=== PATIENT | female | born 1940 | race Caucasian/White ===

== ENCOUNTER 2019-08-09 13:06 | Outpatient (CLI) | payer MEDICARE, OTHER ==
[2019-08-09] MEDS ORDERED: Iopamidol-370 76% 500 ML 1 ML ONE (13:35)
--- NOTE | 2019-08-09 15:36 | CT ---
EXAM: CT Abdomen Pelvis W WO con PROVIDED CLINICAL HISTORY: Hematuria and renal stones. COMPARISON: None FINDINGS: Partial visualization of postsurgical changes related to aortic valve replacement. Mild linear scarri ng and/or atelectasis is present at each lung base. Vascular calcifications are seen in the abdominal aorta and involving the iliac arteries. Single nonobstructing calculus is seen in each kidney. Calculus in the midportion right kidney measur es 7 mm x 5 mm with the calculus in the inferior pole left kidney measuring 11 mm x 6 mm. No ureteral calculus is seen bilaterally. There is no hydronephrosis. No enhancing renal mass is identif ied. Urinary bladder is partially distended and has a normal CT appearance. No ureteral calculus is visualized. A 11 mm hypodense cystic appearing lesion is seen in the pancreatic head which is closely adjacent to the nondilated common duct. There is also suggestion of an additional subcentimeter hypodense cystic appearing lesion in the proximal body of the pancreas. The liver, spleen, and bilateral adrena l glands demonstrate a normal CT appearance. Vascular calcifications are seen in the abdominal aorta and involving the iliac arteries. Uterus is not visualized likely due to prior hysterectomy. Loops of small bowel are normal in caliber. Small hiatal hernia is seen. The appendix is not visualiz ed, there are no secondary signs to suggest appendicitis. Degenerative changes are seen in the lumbar spine. IMPRESSION: 1. Cystic pancreatic lesions largest measuring 11 mm in the pancreatic head. Follow-up CT examination in one year is recommended given size. 2. Nonobstructing bilateral renal calculi. No ureteral calculus is seen. 3. Small hiatal hernia. 4. Hysterectomy.
== END 2019-08-09 13:07 | disposition home or self-care (01) ==
LOC: BICCT 13:06
PROVIDERS: ATTEND Urology
DX: N20.0 Calculus of kidney (principal); R31.9 Hematuria, unspecified; K44.9 Diaphragmatic hernia without obstruction or gangrene; K86.2 Cyst of pancreas; Z90.710 Acquired absence of both cervix and uterus
CPT/HCPCS: 36415; 74178; 80048; 81001; 83036; Q9967

== ENCOUNTER 2019-09-21 09:35 | Outpatient (CLI) | payer MEDICARE, OTHER ==
--- NOTE | 2019-09-21 11:51 | MRI ---
MRI ABDOMEN WITH AND WITHOUT IV CONTRAST: Date: 09/21/2019 INDICATION: History of cystic lesion of the pancreas. COMPARISON: CT abdomen and pelvis with and without contrast dated 08/09/2019. CONTRAST: 16 mL MultiHance. FINDINGS: As seen on the comparison CT evaluation is a 7.0 mm x 11.0 mm unilocular cystic abnormality seen with in the pancreatic head adjacent to the distal common bile duct with no definite communication with th e bile duct or main pancreatic duct. No additional cystic abnormality is evident. The common bile dee t and main pancreatic duct are normal in caliber. No focal hepatic lesion is evident. The spleen and adrenal glands are normal appearing. The kidneys are normal appearing. No free fluid or enlarged lymp h nodes are evident. No bone marrow signal abnormality is demonstrated. Visualized gallbladder is nor mal appearing. No intrahepatic biliary ductal dilatation is noted. IMPRESSION: 1. Small, predominantly unilocular, thin-walled, cystic abnormality within the pancreatic head, is s uspicious for either a small serous cyst versus cystadenoma. No direct communication is seen with the adjacent main pancreatic duct, nor within the common bile duct. Other differential considerations in clude a small choledochal cyst and less likely a small mucinous type cyst. A follow-up MRI examinatio n in 1 year is recommended to document stability. 2. Small hiatal hernia. POS: CET
[2019-09-21] MEDS ORDERED: Magnevist 469MG/ML 20 ML VIAL ONE (14:29)
== END 2019-09-21 09:36 | disposition home or self-care (01) ==
LOC: BICMRI 09:35
PROVIDERS: ATTEND Internal Medicine Gastroenterology
DX: K86.2 Cyst of pancreas (principal); K21.9 Gastro-esophageal reflux disease without esophagitis; K44.9 Diaphragmatic hernia without obstruction or gangrene; R93.3 Abnormal findings on diagnostic imaging of other parts of digestive tract
CPT/HCPCS: 74183; 82565; A9579

== ENCOUNTER 2019-10-04 09:04 | Outpatient (CLI) | payer MEDICARE, OTHER ==
--- NOTE | 2019-10-04 10:40 | RAD ---
Exam: 1 view abdomen Comparison 07/12/2019 FINDINGS: Nonspecific bowel gas pattern. No evidence of small bowel or colonic distention/dilatation. Scattered fecal material in colon. Stable 1 cm calcification projecting over the left renal silhouette. There does appear to be a stable 0.6 cm calcification projecting over the right renal silhouette. Stable calcification the right hemipelvis, likely representing a phlebolith No acute osseous abnormalities. There are degenerative changes in the symphysis pubis IMPRESSION: Bilateral renal calculi.
== END 2019-10-04 09:05 | disposition home or self-care (01) ==
LOC: RAD 09:04
PROVIDERS: ATTEND Urology
DX: N20.0 Calculus of kidney (principal)
CPT/HCPCS: 74018

== ENCOUNTER 2020-02-22 06:06 | Outpatient (CLI) | payer MEDICARE, OTHER ==
[2020-02-22 14:27] LABS: Prothrombin Time 22.7 sec (12.0-14.7)
[2020-02-22 14:28] LABS: #Eosinphils 0.1 thou/uL (0.0-0.7); #Lymphocytes 1.6 thou/uL (1.20-3.40); #Monocytes 0.6 thou/uL (0.11-0.59); #Neutrophils 6.6 thou/uL (1.40-6.50); %Basophils 0.4 % (0.0-1.0); %Eosinophils 1.3 % (0.0-10.0); %Lymphocytes 17.8 % (21.0-51.0); %Monocytes 7.1 % (0.0-10.0); %Neutrophils 73.5 % (42.0-75.0); Mean Corpuscular HGB CONC 33.9 g/dL (32.0-36.0); Mean Corpuscular Hemoglobin 31.6 pg (27.0-31.0); Mean Corpuscular Volume 93.2 fL (78.0-98.0); PTT 41.2 sec (22.9-36.1); Platelet Count 168 thou/uL (130-400); RBC Distribution Width 11.6 % (11.5-14.5); Red Blood Cell (RBC) Count 4.44 mill/uL (4.20-5.40); White Blood Cell (WBC) Count 8.9 thou/uL (4.8-10.8)
[2020-02-22 14:44] LABS: Anion Gap 14 mmol/L (10-20); BUN (Urea Nitrogen) 24 mg/dL (9.8-20.1); Calc. Creatinine Clearance 0 mL/min (70-130); Calcium 9.1 mg/dL (7.8-10.44); Carbon Dioxide 22 mmol/L (23-31); Chloride 105 mmol/L (98-107); Estimated GFR-MDRD 70; Glucose 115 mg/dL (83-110); Potassium 4.3 mmol/L (3.5-5.1); Sodium 137 mmol/L (136-145)
[2020-02-22 15:23] LABS: Bacteria/HPF None Seen HPF (None Seen); Bilirubin Negative (Negative); Blood, Urine 2+ (Negative); Clarity Clear (Clear); Glucose, Urine (Dipstick) Normal (Negative); Ketone, Urine Negative (Negative); Leukocyte Negative Leu/uL (Negative); Nitrite Negative (Negative); Protein, Urine (Dipstick) Negative (Neg-Trace); Squamous Epithelial 0-3 HPF (0-3); Urobilinogen Normal mg/dL (Less than 2); WBC/HPF 0-3 HPF (0-3)
[2020-02-23 13:54] LABS: SARS-CoV-2 MS2 Positive; SARS-CoV-2 N Gene Negative; SARS-CoV-2 S Gene Negative; SARS-CoV-2 by NAA Not Detected (NotDetected); SARS-CoV-2 orf1ab Negative
== END 2020-02-22 06:07 | disposition home or self-care (01) ==
LOC: LABBT 06:06
PROVIDERS: ATTEND Urology
DX: Z01.818 Encounter for other preprocedural examination (principal); Z11.59 Encounter for screening for other viral diseases; N20.0 Calculus of kidney; R31.0 Gross hematuria; N95.2 Postmenopausal atrophic vaginitis; N39.41 Urge incontinence; Z95.2 Presence of prosthetic heart valve; Z71.89 Other specified counseling
CPT/HCPCS: 80048; 81001; 85025; 85610; 85730; 87086; 93005; U0003; 87635; 93010

== ENCOUNTER 2020-02-27 06:03 | Day surgery (SDC) | payer MEDICARE, OTHER ==
[2020-02-22 12:20] VITALS: BMI 33.6
[2020-02-27] MEDS ORDERED: Fentanyl 100 MCG/2 ML VIAL ONE ×2 (06:45→09:09)
[2020-02-27] MEDS ORDERED: Levofloxacin 500 mg/D5W 100 ml Premix Bag ONE (07:00)
[2020-02-27] MEDS ORDERED: Vancomycin 1 GM/200 ML BAG ONE (07:00)
[2020-02-27] MEDS ORDERED: Iothalamate Meglumine 60% 50 ML VIAL FS ONE (07:02)
[2020-02-27] MEDS ORDERED: Propofol 500 MG/50 ML VIAL ONE (07:14)
[2020-02-27 07:16] LABS: PTT 33.8 sec (22.9-36.1); Prothrombin Time 13.2 sec (12.0-14.7)
--- NOTE | 2020-02-27 07:59 | RAD ---
Abdomen one view HISTORY: Renal calculi. COMPARISON: 12/21/2019. FINDINGS: Gas and stool throughout the colon and rectum. 4 lateral margin of the Side of the abdomen located from the image. Lobular calcifications overlying the inferior pole of each kidney are similar in appearance to the pr ior study. No stones are evident over the course of either ureter. Phleboliths project in over the right side of the sacrum is again demonstrated. There are degenerative changes of the lumbar spine and pelvis. IMPRESSION : Stable radiographic appearance of bilateral renal calculi.
[2020-02-27] MEDS ORDERED: SUGAMMADEX SODIUM 200 MG/2 ML VIAL ONE (08:33)
[2020-02-27] MEDS ORDERED: Labetalol HCl 100 MG/20 ML VIAL ONE (08:54)
[2020-02-27] MEDS ORDERED: Phenazopyridine HCl 97.5 MG TABLET ONE (09:09)
[2020-02-27] MEDS ORDERED: Oxybutynin 5 MG TAB ONE (09:09)
[2020-02-27] MEDS ORDERED: hydrALAZINE 20 MG/ML VIAL ONE (09:22)
--- NOTE | 2020-02-27 09:23 | OP ---
DATE OF PROCEDURE: 02/27/2020 PREOPERATIVE DIAGNOSES: 1. An 80-year-old female with history of left lower pole 11 mm stone. 2. Right 7 mm renal calculi. POSTOPERATIVE DIAGNOSES: 1. An 80-year-old female with history of left lower pole 11 mm stone. 2. Right 7 mm renal calculi. PROCEDURES PERFORMED: Cystoscopy, left retrograde pyelogram, 6 x 26 double-J ureteral stent, distal intramural ureteral balloon dilatation, flexible ureteroscopy, pyeloscopy, laser lithotripsy of left lower pole renal calculi. ANESTHESIA: General. COMPLICATIONS: None apparent. DISPOSITION: To recovery room in stable condition. SPECIMEN: None. INTRAOPERATIVE FINDINGS: Left lower pole dense renal calculi. INDICATIONS FOR THE PROCEDURE AND HISTORY: Ms. Knox is an 80-year-old female with history of mechanical heart valve, on Coumadin, presented initially for evaluation of hematuria. Workup demonstrated bilateral renal calculi. CT demonstrates bilateral stone dimensions as above and she presents today for elective treatment of her left renal calculi. She was advised regarding observation of her right renal calculi, consider elective treatment at a later date. She has been seen by Cardiology, cleared to proceed. She requires Lovenox bridging due to mechanical heart valve. Risks and complications of procedure have been discussed including , but not limited to, bleeding; pain; infection; injury to adjacent organs; urosepsis; ureteral, renal, kidney injury; possible secondary procedure if unable to access the upper collecting system. Discussed with her and her daughter in detail and they desired to proceed without reservation. DESCRIPTION OF PROCEDURE: After an informed consent was signed, the patient was taken to the operating room, placed in a dorsal lithotomy position with the genital area prepped and draped in the usual surgical sterile fashion. A 22-Tongan cystoscope was utilized for cystoscopy, which demonstrated no evidence of bladder lesion of concern. Bilateral UOs are identified in normal orthotopic position. The left UO was identified and required 0.035 Sensor wire to intubate the left UO. An open-ended catheter was gently utilized to intubate the intramural portion. Retrograde pyelogram demonstrated no evidence of filling defect and the left lower pole stone was seen with an acute infundibular angle. Stone was radiopaque on KUB. At this time, a 0.035 Sensor wire was placed into the left upper pole and a balloon dilatation of the intramural ureter was performed with a 4 cm 12-Tongan [employer]. Pressure was held and the balloon adequately inflated and dilated the intramural portion and subsequently deflated. We placed a 10-Tongan dual-lumen access sheath, which passed without significant issues to the level of the proximal ureter and a 0.035 Super Stiff wire working access was placed into the left upper pole. At this time, we tried to pass 11/13-Tongan 28 navigator gently. However , it did pass into the distal ureter. However, there was some hang up at the level of the pelvic ureter, therefore I did not further engage. As the access sheath would not go up to the proximal ureter, this was removed completely and a flexible ureteral scope was advanced over the Super Stiff wire. This passed without significant issues to the left renal pelvis, and we surveyed the collecting system, which demonstrated no lesion of concern. Stone was seen in the left lower pole with an acute infundibular angle. It was challenging, however able to engage adequately. Using a 200 micron ball-tip fiber, we laser lithotripsied the stone into multiple tiny pieces. The stone was very dense, required energy, titrated, escalated up to 1.0, 1.2, subsequently 1.5. Stone was fragmented into multiple debris. What remained in the lower pole were tiny 2 mm stone nidus. Some of the stone did migrate, fragmented into the renal pelvis and they were very small in caliber. Most of the stone debris, I anticipate, will most likely pass given the small size. We surveyed the ureter, which demonstrated no evidence of ureteral calculi, ureteral mucosa injury of concern. A 6 x 24 double-J ureteral stent was passed without difficulty into the mid pole with adequate redundancy in the bladder. She tolerated the procedure well and transported to the recovery room in stable condition. She will be provided amoxicillin to take x1, 1 g, Macrobid 100 mg one p.o. b.i.d. until followup appointment, as this will alter minimally with her INR, tramadol 50 mg #30, Azo p.r.n. She is on VESIcare for baseline frequency, urge incontinence, which she is to continue, Azo over the counter. She is to obtain a KUB one day prior to her appointment with me. If there is no obvious ureteral calculi of burden, stent pull will be performed under local. Job ID: [id number] [facility]
--- NOTE | 2020-02-27 09:47 | RAD ---
RETROGRADE PYELOGRAM: HISTORY: Renal calculus. Two portable fluoroscopic spot films are presented for interpretation. These reveal injection of the left ureter with a filling defect in the left renal upper collecting system. A left ureteral stent was placed. IMPRESSION: Left renal calculus. Placement of a left ureteral stent. POS: OFF
[2020-02-27] MEDS ORDERED: HYDROcodone/Acetaminophen 5/325 mg Tablet ONE (10:01)
[2020-02-27] MEDS ORDERED: Rocuronium Bromide 10 MG/ML (10ML VIAL) ONE (10:03)
[2020-02-27] MEDS ORDERED: Ondansetron PF 4 MG/2 ML Vial ONE (10:03)
[2020-02-27] MEDS ORDERED: PROPOFOL 200 MG/20 ML VIAL ONE (10:03)
[2020-02-27] MEDS ORDERED: Glycopyrrolate 0.2 MG/ML 5 ML SYRINGE ONE (10:03)
[2020-02-27] MEDS ORDERED: Dexamethasone 20 MG/5 ML VIAL ONE (10:03)
[2020-02-27] MEDS ORDERED: Lidocaine 1% PF 5 ML VIAL ONE (10:03)
[2020-02-27] MEDS ORDERED: Ondansetron ODT 4 MG TAB ONE (10:50)
== END 2020-02-27 11:00 | disposition home or self-care (01) ==
LOC: SDC 06:03
PROVIDERS: ATTEND Urology
PROC: 0TC48ZZ Extirpation of Matter from Left Kidney Pelvis, Via Natural or Artificial Opening Endoscopic (ICD-10-PCS; principal; 2020-02-27)
PROC: 0T778DZ Dilation of Left Ureter with Intraluminal Device, Via Natural or Artificial Opening Endoscopic (ICD-10-PCS; 2020-02-27)
DX: N20.0 Calculus of kidney (principal); N39.41 Urge incontinence; N95.2 Postmenopausal atrophic vaginitis; K21.9 Gastro-esophageal reflux disease without esophagitis; E11.9 Type 2 diabetes mellitus without complications; Z79.01 Long term (current) use of anticoagulants; Z79.899 Other long term (current) drug therapy; Z88.0 Allergy status to penicillin; Z95.2 Presence of prosthetic heart valve
CPT/HCPCS: 74018; 74420; 85610; 85730; J0360; J1100; J1956; J2405; J2704; J3010; J3370; Q0162

== ENCOUNTER 2021-01-18 08:24 | Outpatient (CLI) | payer MEDICARE, OTHER ==
[2021-01-18] MEDS ORDERED: Magnevist 469MG/ML 20 ML VIAL ONE (11:17)
== END 2021-01-18 08:25 | disposition home or self-care (01) ==
LOC: BICMRI 08:24
PROVIDERS: ATTEND Physician Assistant Medical
DX: K86.2 Cyst of pancreas (principal)
CPT/HCPCS: 74183; 82565

== ENCOUNTER 2022-06-10 19:00 | Outpatient (CLI) | payer MEDICARE, OTHER | END 2022-06-10 19:01 | disposition home or self-care (01) | LOC: SLEEPLAB 19:00 | PROVIDERS: ATTEND Internal Medicine | DX: G47.33 Obstructive sleep apnea (adult) (pediatric) (principal); G31.84 Mild cognitive impairment of uncertain or unknown etiology; E11.9 Type 2 diabetes mellitus without complications; R06.83 Snoring; G47.10 Hypersomnia, unspecified; E66.9 Obesity, unspecified; I49.3 Ventricular premature depolarization; Z68.32 Body mass index [BMI] 32.0-32.9, adult | CPT/HCPCS: 36415; 85610; 95811 ==

== ENCOUNTER 2023-07-02 06:37 | Day surgery (SDC) | payer MEDICARE, OTHER ==
[2023-07-01 13:23] VITALS: BMI 32.8
[2023-07-02] MEDS ORDERED: Lidocaine 1% PF 5 ML VIAL ONE (08:33)
[2023-07-02] MEDS ORDERED: PROPOFOL 20 ML ONE (08:41)
== END 2023-07-02 10:02 | disposition home or self-care (01) ==
LOC: SDC 06:37
PROVIDERS: ATTEND Internal Medicine Gastroenterology
PROC: XW0H7X8 Introduction of Broad Consortium Microbiota-based Live Biotherapeutic Suspension into Lower GI, Via Natural or Artificial Opening, New Technology Group 8 (ICD-10-PCS; principal; 2023-07-02)
DX: A04.71 Enterocolitis due to Clostridium difficile, recurrent (principal); K55.20 Angiodysplasia of colon without hemorrhage; E11.9 Type 2 diabetes mellitus without complications; E78.00 Pure hypercholesterolemia, unspecified; M19.90 Unspecified osteoarthritis, unspecified site; K21.9 Gastro-esophageal reflux disease without esophagitis; Z88.0 Allergy status to penicillin; Z95.4 Presence of other heart-valve replacement; Z90.710 Acquired absence of both cervix and uterus; Z79.899 Other long term (current) drug therapy
CPT/HCPCS: J2704